=== PATIENT | female | born 2000 | race Caucasian/White ===

== ENCOUNTER 2020-10-21 14:33 | Emergency (ER) | payer OTHER | END 2020-10-21 16:47 | disposition left against medical advice (07) | LOC: ER1 14:33 | DX: M79.604 Pain in right leg (principal); R20.2 Paresthesia of skin; Z53.21 Procedure and treatment not carried out due to patient leaving prior to being seen by health care provider ==

== ENCOUNTER → 2020-10-22 | Outpatient (CLI) | payer OTHER | LOC: RT 10:45 | DX: R00.2 Palpitations (principal); R53.83 Other fatigue ==

== ENCOUNTER 2021-02-17 19:56 | Emergency (ER) | payer OTHER | END 2021-02-17 20:41 | disposition left against medical advice (07) | LOC: ER1 19:56 | DX: Z53.21 Procedure and treatment not carried out due to patient leaving prior to being seen by health care provider (principal) ==

== ENCOUNTER 2021-02-18 19:25 | Emergency (ER) | payer OTHER ==
[2021-02-18 20:24] LABS: HEMOGLOBIN 14.2 gm/dl (12.3-15.3); RED BLOOD COUNT 4.96 M/UL (4.00-5.10); WHITE BLOOD COUNT 14.3 K/UL (4.5-11.0)
[2021-02-18 20:42] LABS: BUN/CREATININE RATIO 22 (0-10)
== END 2021-02-18 21:35 | disposition home or self-care (01) ==
LOC: ER1 19:25
PROVIDERS: Emergency Medicine
DX: R00.0 Tachycardia, unspecified (principal); I49.3 Ventricular premature depolarization
CPT/HCPCS: 71045; 80053; 82550; 82553; 83735; 83874; 84484; 85025; 93005; 99285